=== PATIENT | male | born 1945 | race Caucasian/White ===

== ENCOUNTER → 2022-08-07 | Day surgery (SDC) | payer MEDICARE ==
[2022-08-06 11:11] VITALS: BMI 27.8
[~2022-08-07] MED LIST: Lidocaine 1% PF 5 ML VIAL ONE; PROPOFOL 200 MG/20 ML VIAL ONE; Propofol 500 MG/50 ML VIAL ONE
[2022-08-07 10:17] LABS: #Basophils 0.1 thou/uL (0.0-0.2); #Eosinphils 0.2 thou/uL (0.0-0.7); #Neutrophils 6.3 thou/uL (1.40-6.50); %Basophils 0.8 % (0.0-1.0); %Eosinophils 2.1 % (0.0-10.0); %Lymphocytes 15.9 % (21.0-51.0); %Monocytes 11.1 % (0.0-10.0); %Neutrophils 69.5 % (42.0-75.0); Hematocrit 36.8 % (42.0-52.0); Hemoglobin 11.1 g/dL (14.0-18.0); Mean Corpuscular HGB CONC 30.2 g/dL (32.0-36.0); Mean Corpuscular Hemoglobin 23.4 pg (27.0-31.0); Mean Corpuscular Volume 77.6 fl (78.0-98.0); Mean Platelet Volume 9.7 fL (7.4-10.4); Platelet Count 206 10x3/uL (130-400); RBC Distribution Width 17.2 % (11.5-14.5); Red Blood Cell (RBC) Count 4.74 mill/uL (4.70-6.10); White Blood Cell (WBC) Count 9.1 10x3/uL (4.8-10.8)
[2022-08-07 10:30] LABS: INR-International Normal Ratio 1.3; Prothrombin Time 16.2 sec (12.0-14.7)
[2022-08-07 10:31] LABS: PTT 30.3 sec (22.9-36.1)
[2022-08-07 10:49] LABS: Anion Gap 9 mmol/L (10-20); BUN (Urea Nitrogen) 23 mg/dL (8.4-25.7); Calc. Creatinine Clearance 58 mL/min (70-130); Carbon Dioxide 26 mmol/L (23-31); Chloride 106 mmol/L (98-107); Estimated GFR 59; Glucose 89 mg/dL (83-110); Potassium 4.2 mmol/L (3.5-5.1); Sodium 137 mmol/L (136-145)
== END ==
LOC: SDC 09:36
PROVIDERS: ATTEND Internal Medicine Cardiovascular Disease
DX: R06.02 Shortness of breath (principal); I48.0 Paroxysmal atrial fibrillation; N52.9 Male erectile dysfunction, unspecified; M79.606 Pain in leg, unspecified; R09.89 Other specified symptoms and signs involving the circulatory and respiratory systems; I42.9 Cardiomyopathy, unspecified; R53.83 Other fatigue; Z87.891 Personal history of nicotine dependence; Z79.82 Long term (current) use of aspirin; Z79.899 Other long term (current) drug therapy
CPT/HCPCS: 36415; 80048; 85025; 85610; 85730; 92960; 93005; 93010; 93312; J2704

== ENCOUNTER 2023-04-02 12:00 | Inpatient (IN) | payer MEDICARE, OTHER ==
[2023-04-02 12:37] VITALS: BMI 28.3
[2023-04-02 14:12] LABS: Bilirubin Neg (Negative); Blood, Urine 10 (Negative); Glucose, Urine (Dipstick) Normal (Negative); Ketone, Urine Negative (Negative); Leukocyte 500 (Negative); Nitrite Negative (Negative); Protein, Urine (Dipstick) 15 mg/dl (Neg-Trace); Specific Gravity, Urine 1.025 (1.005-1.030); Urobilinogen Normal mg/dL (Less than 2)
[2023-04-02 14:13] LABS: Clarity Clear (Clear)
[2023-04-02 14:23] LABS: Hematocrit 41.5 % (38.8-50.0); Hemoglobin 13.8 g/dL (13.5-17.5); Mean Corpuscular HGB CONC 33.3 g/dL (32.0-36.0); Mean Corpuscular Hemoglobin 28.7 pg (27.0-33.0); Mean Corpuscular Volume 86.3 fl (81.2-95.1); Mean Platelet Volume 10.2 fl (7.4-10.4); Platelet Count 208 10x3/uL (150-450); Red Blood Cell (RBC) Count 4.81 10x6/uL (4.32-5.72); White Blood Cell (WBC) Count 9.5 10x3/uL (3.5-10.5)
[2023-04-02 14:41] LABS: PTT 29.6 sec (22.0-33.0); Prothrombin Time 11.1 sec (9.5-12.1)
[2023-04-02 14:45] LABS: ALT (SGPT) 12 U/L (8-55); AST (SGOT) 17 U/L (5-34); Albumin 4.1 g/dL (3.4-4.8); Alkaline Phosphatase 98 U/L (40-110); Anion Gap 10 mmol/L (10-20); BUN (Urea Nitrogen) 21 mg/dL (8.4-25.7); Bilirubin, Total 0.4 mg/dL (0.2-1.2); Calc. Creatinine Clearance 68 mL/min (70-130); Calcium 8.9 mg/dL (7.8-10.44); Carbon Dioxide 25 mmol/L (23-31); Chloride 108 mmol/L (98-107); Estimated GFR 70; Globulin 2.8 g/dL (2.4-3.5); Glucose 79 mg/dL (83-110); Potassium 4.4 mmol/L (3.5-5.1); Protein, Total 6.9 g/dL (5.8-8.1); Sodium 139 mmol/L (136-145)
[2023-04-08] MEDS ORDERED: Iopamidol 370 76% 100 ML VIAL ONE (12:14)
[2023-04-08] MEDS ORDERED: Heparin 10,000 UNITS/ 10 ML VIAL ONE (12:49)
[2023-04-08] MEDS ORDERED: CEFAZOLIN 2 GM VIAL ONE (12:49)
[2023-04-08] MEDS ORDERED: Protamine Sulfate 50 MG/5 ML VIAL ONE (12:49)
[2023-04-08] MEDS ORDERED: SUGAMMADEX SODIUM 200 MG/2 ML VIAL ONE (13:31)
[2023-04-08] MEDS ORDERED: fentaNYL 50 mcg/mL 1 mL Vial ONE (13:32)
[2023-04-08] MEDS ORDERED: PROPOFOL 200 MG/20 ML VIAL ONE (13:34)
[2023-04-08] MEDS ORDERED: Ondansetron PF 4 MG/2 ML Vial ONE (13:34)
[2023-04-08] MEDS ORDERED: Lidocaine 1% PF 5 ML VIAL ONE (13:34)
[2023-04-08] MEDS ORDERED: Rocuronium Bromide 10 MG/ML (10ML VIAL) ONE (13:34)
[2023-04-08] MEDS ORDERED: Dexamethasone 20 MG/5 ML VIAL ONE (13:34)
== END 2023-04-08 17:36 | disposition home or self-care (01) | DRG 274 ==
LOC: SURG A 04-08 11:39
PROVIDERS: ADMIT Internal Medicine Cardiovascular Disease; ATTEND Internal Medicine Cardiovascular Disease
PROC: B24BZZ4 Ultrasonography of Heart with Aorta, Transesophageal (ICD-10-PCS; principal; 2023-04-08)
PROC: 02L73DK Occlusion of Left Atrial Appendage with Intraluminal Device, Percutaneous Approach (ICD-10-PCS; 2023-04-08)
DX: I48.0 Paroxysmal atrial fibrillation (principal); D64.9 Anemia, unspecified; Z79.01 Long term (current) use of anticoagulants; Z95.5 Presence of coronary angioplasty implant and graft; I50.9 Heart failure, unspecified; Z79.899 Other long term (current) drug therapy; Z79.82 Long term (current) use of aspirin; Z98.890 Other specified postprocedural states
CPT/HCPCS: 33340; 80053; 81003; 85027; 85347; 85610; 85730; 86850; 86900; 86901; 93005; 93010; 93306; 93355; C1759; C1760; C1894; J1100; J1644; J2405; J2704; J2720; J3010; Q9967